=== PATIENT | female | born 2000 | race American Indian/Alaskan Native ===

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

== ENCOUNTER 2020-04-24 16:06 | Inpatient (IN) | payer OTHER, MEDICAID ==
[2020-04-24] MEDS ORDERED: Lactated Ringers 1,000 ML IV ONE (16:23)
[2020-04-24] MEDS ORDERED: Ondansetron 4 MG/2 ML SDV IVPUSH PRN (16:23)
[2020-04-24] MEDS ORDERED: Acetaminophen 325 MG Tab PO PRN (16:23)
[2020-04-24] MEDS ORDERED: Tranexamic Acid 1,000 MG in Sodium Chloride 0.9% 100 ML IV PRN (16:23)
[2020-04-24] MEDS ORDERED: Methylergonovine 0.2 MG/1 ML Amp IM PRN (16:23)
[2020-04-24] MEDS ORDERED: Misoprostol 400 MCG (4 X 100 MCG TAB) RECTAL PRN (16:23)
[2020-04-24] MEDS ORDERED: Lidocaine 1% 30 ML SDV INJECT PRN (16:23)
[2020-04-24] MEDS ORDERED: fentaNYL 100 MCG/2 ML SDV IVPUSH PRN (16:23)
[2020-04-24] MEDS ORDERED: Carboprost Tromethamine 250 MCG/1 ML Amp IM PRN (16:23)
[2020-04-24] MEDS ORDERED: Sodium Chloride 0.9% 10 ML Syringe FLUSH PRN ×2 (16:23→20:05)
[2020-04-24] MEDS ORDERED: Oxytocin/Normal Saline 30 UNIT/500 ML BAG IV SCH (16:30)
[2020-04-24] MEDS: Lactated Ringers 1,000 ML IV SCH ×2 (16:49→19:50)
[2020-04-24] MEDS ORDERED: fentaNYL 100 MCG/2 ML SDV ONE (17:39)
[2020-04-24] MEDS ORDERED: EPINEPHrine 1 MG/1 ML Amp ONE ×2 (17:40)
[2020-04-24] MEDS ORDERED: fentaNYL 100 MCG/2 ML SDV ITHECAL ONE (17:40)
[2020-04-24] MEDS ORDERED: Benzocaine/Menthol 20%-0.5% Spray 56 GM Canister TOP PRN (20:05)
[2020-04-24] MEDS ORDERED: Simethicone 80 MG Tab.Chew PO PRN (20:05)
[2020-04-24] MEDS ORDERED: Zolpidem 5 MG Tab PO PRN (20:05)
[2020-04-24] MEDS ORDERED: Oxytocin 10 Units/1 ML SDV IM PRN (20:05)
[2020-04-24] MEDS ORDERED: Measles, Mumps & Rubella Vaccine 0.5 ML SDV SUBCUT ONE (20:05)
[2020-04-24] MEDS: Ibuprofen 800 MG Tab PO PRN (22:33)
[2020-04-24] MEDS: Docusate Sodium 100 MG Cap PO PRN (22:33)
--- NOTE | 2020-04-25 06:55 | HP ---
PATIENT IDENTIFICATION: Isis Croft is a 19-year-old G1, P0, intrauterine at 39-4/7 weeks confirmed with 12-1/7 week ultrasound, who presents in with contractions. HISTORY OF PRESENT ILLNESS: The patient states contractions started getting stronger around 2:30 p.m. on date of admission, increasing in frequency and intensity to the point that they are coming every 2 minutes, that she is breathing and screaming through them, worsening over time. Nothing seems to make them better. She does notice mild spotting associated with this and questionable leaking when nurse checked her, but none since then. To put this in context, she is GBS negative. She has also been on iron during this as well as vitamins for her anemia. Records were called for, reviewed as below, and supplemented by patient history. OBSTETRICAL HISTORY: Primid. [facility]: ABO blood type O positive, negative antibody. Rubella nonimmune. Syphilis antibody is nonreactive. Negative hepatitis B surface antigen, hep C, HIV, GC, and Chlamydia. Wet prep within normal limits. One- hour GTT was 136 on 02/03/2020 and hemoglobin same day was 9.7 with platelets of 274. Pending is a CBC upon admission. PAST MEDICAL/PAST SURGICAL HISTORY: Remarkable for laparoscopic appendectomy back in 2009 as well as having history of needing albuterol. No recent use of inhaler. FAMILY HISTORY: Hypertension in maternal grandmother. Negative family history of anesthesia problems, bleeding problems, defects, or thyroid disease. SOCIAL HISTORY: The patient denies any alcohol, tobacco, or drug use. She lives in [place] with her father and 7 siblings, outside dogs as pets. REVIEW OF SYSTEMS: Otherwise fully reviewed and felt to be noncontributory. OBJECTIVE: Vital Signs: Initial blood pressure 140/78, heart rate by my central exam was in the 90s, respiratory rate is between 12 and 16. Appearance: Female appears stated age, acting appropriate. Nontoxic appearance. Breathing through contractions, but answers questions appropriately. Head: Atraumatic. EOMs intact. PERRLA. No scleral icterus. No obvious otorhinorrhea. Mucous membranes moist. Neck: No obvious tenderness. Lungs: Clear to auscultation bilaterally. No increased work of breathing. Heart: S1, S2. Regular rate and rhythm. Abdomen: Gravid. Ugo's indeterminate. Nontender, nondistended. Bowel sounds positive. No organomegaly, pulsatile masses, or obvious hernias. No rebound, rigidity, or guarding. : Normal external female genitalia. Normal position and presentation. Vaginal exam by my exam reveals 6 cm, 95% effaced, 0 to -1 station, vertex suspected, bag of water is felt. Extremities: No peripheral edema. Deep tendon reflexes 3/4 bilaterally and symmetric in lower extremities. Mood and affect congruent. Judgment and insight intact. Skin: Without cyanosis, clubbing, or jaundice. Investigations pending is a CBC. Rapid COVID test was negative. heart tones in the 140s range. Variable decelerations seen with some moderate variability. Tocometer reveals contractions every 1-1/2 to 3 minutes apart. ASSESSMENT: 1. Intrauterine at 39-4/7 weeks confirmed with 12-1/7 week ultrasound. 2. Active labor. 3. Group B Streptococcus negative. 4. Rubella nonimmune. 5. Maternal anemia, currently on iron and vitamins. Hemoglobin upon admit is pending. 6. G1, P0. PLAN: The patient was initially evaluated by nurse and found to be 4 cm, and within an hour of this, she was 6 cm. She is requesting something for pain. Nitrox has been started and requesting intrathecal and currently awaiting for labs and HAND CELL TUBER to proceed. We will proceed with this as soon as available. Otherwise, we will continue to follow clinically and closely at this point in time. Watch maternal status. The patient understands and agrees with the above treatment plan. [facility] /[id number]
[2020-04-25] MEDS: Prenatal Multivitamin with Calcium/Folic Acid/Iron Tab PO SCH (09:11)
[2020-04-25] MEDS: Docusate Sodium 100 MG Cap PO PRN (09:11)
[2020-04-25] MEDS: Ibuprofen 800 MG Tab PO PRN ×2 (09:11→18:13)
--- NOTE | 2020-04-25 10:21 | PN ---
DATE: 04/24/2020 SUBJECTIVE: The patient is comfortable status post intrathecal. OBJECTIVE: heart tones in the 140s to 150s range with some accelerations noted. Tocometer reveals contractions every 2 minutes. Vaginal exam reveals her to be complete, +1 to +2 station, vertex suspected. Meconium stained fluid noted and some bloody show. ASSESSMENT AND PLAN: Intrauterine at 39 and 4/7 weeks, confirmed with 12 and 1/7 weeks ultrasound, in an active labor, group B Streptococcus negative, rubella nonimmune, G1, P0 with meconium-stained fluid. Did discuss with the patient and as she is complete and there have been concerns with some decelerations earlier and there is one currently, we will proceed to follow her closely and shorten the second stage of labor if possible and start pushing. [facility] /[id number]
--- NOTE | 2020-04-25 11:21 | PN ---
DATE: 04/25/2020 day #1, status post vacuum-assisted vaginal delivery SUBJECTIVE: The patient is tolerating p.o., is ambulating. Did receive a cath last night for concerns with urinary retention. Did void this morning. We will continue to follow clinically and closely in regard to this. OBJECTIVE: Vital Signs: The patient has been afebrile, heart rate 79, blood pressure 120/54, respiratory rate is 12 to 16 by my evaluation. Lungs: Clear to auscultation bilaterally. Heart: S1 and S2. Regular rate and rhythm. Abdomen: Firm uterus. -1 below umbilicus. Extremities: No peripheral edema. No calf pain. LABORATORY DATA: White cell count 19, hemoglobin 11.5, platelets 213. Predelivery hemoglobin 14.4. ASSESSMENT AND PLAN: day #1, status post vacuum-assisted vaginal delivery secondary to perineal laceration, repaired. We will continue to follow clinically and closely. Possible discharge tomorrow. Discussed with mother. Continue working on and follow closely. The patient understands and agrees with the above treatment plan. We will do a bladder scan today if she has any concerns with her urine output and bladder sensations that she had earlier and catheterize if needed. She did have an intrathecal. [facility] /[id number]
--- NOTE | 2020-04-25 12:42 | DEL ---
DATE: 04/24/2020 PREOPERATIVE DIAGNOSES: 1. Intrauterine at 39-4/7 weeks, confirmed with 12-1/7 week ultrasound. 2. Active labor upon admission. 3. Group B Streptococcus negative. 4. Rubella nonimmune. 5. History of maternal anemia, on iron, resolved with hemoglobin of 14.4 upon admission. 6. G1, P0. 7. Meconium-stained fluid. 8. bradycardia. POSTOPERATIVE DIAGNOSES: 1. Intrauterine at 39-4/7 weeks, confirmed with 12-1/7 week ultrasound - delivered. 2. Active labor upon admission. 3. Group B Streptococcus negative. 4. Rubella nonimmune. 5. History of maternal anemia, on iron, resolved with hemoglobin of 14.4 upon admission. 6. G1, P0. 7. Meconium-stained fluid. 8. bradycardia. 9. Second-degree perineal laceration - repaired. PROCEDURE PERFORMED: Vacuum-assisted vaginal delivery with second degree perineal laceration - repaired. Procedure performed by Tiago Pool MD. ANESTHESIA/ANALGESIA: The patient did receive Nitrox in the first stage of labor and then received an intrathecal late first stage of labor. ESTIMATED BLOOD LOSS: 200 mL. FINDINGS: Male. score of 9 and 9, weight pending. SUMMARY OF EVENTS: The patient is a 19-year-old, G1, P0, intrauterine of 39-4/7 weeks, confirmed with 12-1/7-week ultrasound, admitted in active labor with advancing cervical dilation. She received some Nitrox while waiting for intrathecal, which she subsequently received. She was followed closely thereafter. Upon serial evaluations, she was found to be complete with thick meconium-stained fluid with heart tones dropping with a deceleration-type pattern followed by bradycardia. Subsequently, room was set up in a rapid fashion. Did discuss with the patient proceeding with vacuum-assisted vaginal delivery if possible. Did discuss with her the risks, benefits, alternatives, and complications of this as well as with her elder female partner, who I suspect is her mother, who is with her. Subsequently, under sterile condition, Jordan catheter was placed and yellow juanita colored urine was drained. Jordan catheter was removed, and subsequently the patient pushed with contractions. vertex was then brought down and was seen splitting the labia, and at that time, Kiwi vacuum was called for, applied to the vertex, and with the next contraction with the patient pushing, it was pumped up to the green, and with gentle pulling pressure, further descent was noted. And then with future pushing, vertex was delivered. Vacuum was disengaged. KRISYT presentation was noted. Anterior-posterior shoulder as well as delivered without difficulty thereafter. Mouth and nares suctioned. Cord was doubly clamped and cut, and infant was brought over to team for resuscitation. Approximately 10 mL cord blood was obtained for labs. Placenta then delivered with gentle cord traction, fundal massage within 5 minutes. Perineum, vagina, and perirectal areas were examined and noted to have a second-degree perineal laceration that was repaired in usual fashion using 3-0 Vicryl with good anesthetic result from her intrathecal. Mother and infant are currently stable at the time of dictation. [facility] /[id number]
--- NOTE | 2020-04-25 14:07 | PCM.DEL ---
L & D Note - Delivery Note Episiotomy Type: None Vacuum Extractor Progress Note - Alternative Labor Strategies Considered Alternative Labor Strategies Considered:: Reports: Yes Strategies Considered:: Reports: Contraction Intensity Adequate, Position Changes Used to Facilitate Rotation & Descent, Empty Bladder, Rest Indications Considered:: Reports: Yes Indications:: Reports: Suspicion of Immediate or Potential Compromise Time Out:: Reports: Yes - Patient Prepared Patient Prepared:: Reports: Yes Informed Consent:: Reports: Yes, Verbal Risks: Reports: Yes Risks Include:: Reports: Laceration, Shoulder Dystocia, Maternal Injury, Other Anesthesia/Analgesia Adequate:: Reports: Yes - Probability of Success High Probability of Success:: Reports: Yes Weight Estimated:: Reports: AGA Patient Diabetic:: Reports: No Pelvis Adequate:: Reports: No Position:: vertex seen splitting labia Asynclitic:: Reports: No - Application Time Maximum Application Time & Number of Pop-Offs Predetermined:: Reports: Yes Maximum Pressure Maintained in Green Zone (cm Hg):: 0 (see nurses notes) Total Application Time (min): *max=20min: 0 (see nurses note) Number of Times Cup Disengaged:: 0 Type of Vacuum Used:: Reports: Cup: Soft (kiwi vaccum) Vacuum Extraction: Successful - Exit Strategy Exit strategy available:: Reports: Yes and resuscitation teams readily available:: Reports: Yes - General Info Date of Service: 04/24/20 - Patient Data Vitals - Most Recent: Last Vital Signs Temp 99.0 F 04/25/20 10:30 Pulse 114 H 04/25/20 08:00 Resp 16 04/25/20 08:00 BP 123/57 L 04/25/20 08:00 Pulse Ox 97 04/25/20 08:00 Weight - Most Recent: 74.389 kg I&O - Last 24 Hours: Intake & Output 04/24/20 04/25/20 04/25/20 22:59 06:59 14:59 Output Total 600 Balance -600 Lab Results Last 24 Hours: Laboratory Results - last 24 hr 04/24/20 04/24/20 04/25/20 Range/Units 16:10 17:07 06:19 WBC 16.0 H 19.0 H (5.0-10.0) 10^3/uL RBC 4.83 3.83 L (4.2-5.4) 10^6/uL Hgb 14.4 11.5 L D (12.0-16.0) g/dL Hct 43.4 35.4 L (37.0-47.0) % MCV 89.9 92.4 (80-100) fL MCH 29.8 30.0 (27.0-34.0) pg MCHC 33.2 32.5 L (33.0-35.0) g/dL Plt Count 255 213 (150-450) 10^3/uL COVID-19 (SNEG) Negative (NEGATIVE) Med Orders - Current: Current Medications Acetaminophen (Tylenol) 650 mg PO Q4H PRN PRN Reason: Pain (Mild 1-3) and fever Benzocaine/Menthol (Dermoplast Pain Relief [place]) 0 gm TOP Q4H PRN PRN Reason: Perineal comfort measures Last Admin: 04/24/20 22:34 Dose: 1 spray Documented by: Carboprost Tromethamine (Hemabate Ds) 250 mcg IM ASDIRECTED PRN PRN Reason: HEMORRHAGE Docusate Sodium (Colace) 100 mg PO BID PRN PRN Reason: Constipation Last Admin: 04/25/20 09:11 Dose: 100 mg Documented by: Fentanyl (Sublimaze) 100 mcg IVPUSH Q1H PRN PRN Reason: Pain (moderate 4-6) Tranexamic Acid 1,000 mg/ (Sodium Chloride) 110 mls @ 660 mls/hr IV ONETIME PRN PRN Reason: Bleeding Oxytocin/Sodium Chloride (Pitocin In Ns 30 Unit/500 Ml) 30 unit in 500 mls @ 2 mls/hr IV TITRATE AYAZ; Protocol Last Titration: 04/24/20 22:50 Dose: 0 munits/min, 0 mls/hr Documented by: Lactated Ringer's (Ringers, Lactated) 1,000 mls @ 125 mls/hr IV ASDIRECTED AYAZ Last Infusion: 04/24/20 22:50 Dose: 0 mls/hr Documented by: Ibuprofen (Motrin) 800 mg PO Q8H PRN PRN Reason: Mild Pain or Fever Last Admin: 04/25/20 09:11 Dose: 800 mg Documented by: Lidocaine HCl (Xylocaine-Mpf 1%) 30 ml INJECT ASDIRECTED PRN PRN Reason: Perineal Repair Methylergonovine Maleate (Methergine) 0.2 mg IM ASDIRECTED PRN PRN Reason: Hemorrhage Misoprostol (Cytotec) 800 mcg RECTAL ASDIRECTED PRN PRN Reason: Hemorrhage Ondansetron HCl (Zofran) 4 mg IVPUSH Q4H PRN PRN Reason: Nausea/Vomiting Last Admin: 04/24/20 17:16 Dose: 4 mg Documented by: Oxytocin (Pitocin) 10 unit IM ONETIME PRN PRN Reason: Bleeding Prenat Multivit/[place]/Iron/Folic Ac ( Plus Iron) 1 each PO DAILY AYAZ Last Admin: 04/25/20 09:11 Dose: 1 each Documented by: Simethicone (Simethicone) 80 mg PO Q4H PRN PRN Reason: Gas Sodium Chloride (Saline Flush) 10 ml FLUSH ASDIRECTED PRN PRN Reason: Keep Vein Open Witch Sanjuana (Medi-Pads) 1 each TOP Q4HR PRN PRN Reason: Perineal Comfort Measure Zolpidem Tartrate (Ambien) 5 mg PO BEDTIME PRN PRN Reason: Insomnia Discontinued Medications Epinephrine HCl (Adrenalin) Confirm Administered Dose 1 mg .ROUTE .STK-MED ONE Stop: 04/24/20 17:41 Last Admin: 04/24/20 18:57 Dose: Not Given Documented by: Fentanyl (Sublimaze) Confirm Administered Dose 100 mcg .ROUTE .STK-MED ONE Stop: 04/24/20 17:40 Last Admin: 04/24/20 18:57 Dose: Not Given Documented by: Lactated Ringer's (Ringers, Lactated) 1,000 mls @ 500 mls/hr IV BOLUS ONE Stop: 04/24/20 18:22 Last Admin: 04/24/20 17:40 Dose: 500 mls/hr Documented by: Measles/Mumps/Rubella Vaccine Live (M-M-R Ii Vaccine) 0.5 ml SUBCUT .ONCE ONE Stop: 04/24/20 20:06 Sufentanil Citrate (Sufenta) Confirm Administered Dose 50 mcg .ROUTE .STK-MED ONE Stop: 04/24/20 17:41 Last Admin: 04/24/20 18:58 Dose: Not Given Documented by: - Problem List Review Problem List Initiated/Reviewed/Updated: Yes - My Orders Last 24 Hours: My Active Orders 04/24/20 16:23 Patient Status [ADT] Routine Notify Provider Vital Signs OB [RC] ASDIRECTED Notify Provider [RC] PRN Up ad Corinne [RC] ASDIRECTED Vital Signs [RC] 08,20 Acetaminophen [TylenoL] 650 mg PO Q4H PRN Carboprost Tromethamine [Hemabate DS] 250 mcg IM ASDIRECTED PRN Lidocaine 1% [Xylocaine-MPF 1%] 30 ml INJECT ASDIRECTED PRN Methylergonovine [Methergine] 0.2 mg IM ASDIRECTED PRN Ondansetron [Zofran] 4 mg IVPUSH Q4H PRN Sodium Chloride 0.9% [Saline Flush] 10 ml FLUSH ASDIRECTED PRN Tranexamic Acid [Cyklokapron] 1,000 mg Sodium Chloride 0.9% [Normal Saline] 100 ml IV ONETIME fentaNYL [Sublimaze] 100 mcg IVPUSH Q1H PRN miSOPROStoL [Cytotec] 800 mcg RECTAL ASDIRECTED PRN Saline Lock Insert [OM.PC] Routine Resuscitation Status Routine 04/24/20 16:30 Lactated Ringers [Ringers, Lactated] 1,000 ml IV ASDIRECTED Oxytocin/Normal Saline [Pitocin in NS 30 UNIT/500 ML] 30 unit in 500 ml IV TITRATE 04/24/20 Dinner Clear Liquid Diet [DIET] Regular Diet [DIET] 04/24/20 20:05 Benzocaine/Menthol [Dermoplast Pain Relief [place]] See Dose Instructions TOP Q4H PRN Docusate Sodium [Colace] 100 mg PO BID PRN Ibuprofen [Motrin] 800 mg PO Q8H PRN Oxytocin [Pitocin] 10 unit IM ONETIME PRN Simethicone 80 mg PO Q4H PRN Zolpidem [Ambien] 5 mg PO BEDTIME PRN witch Sanjuana [Medi-Pads] 1 each TOP Q4HR PRN Assess Lochia [WOMSER] Per Unit Routine Assess Uterine Involution [WOMSER] Per Unit Routine Breast Pump [WOMSER] Per Unit Routine Ice Therapy [OM.PC] Per Unit Routine Perineal Care [OM.PC] Per Unit Routine Saline Lock Insert [OM.PC] Urgent Sitz Bath [OM.PC] Per Unit Routine 04/24/20 20:06 Vaccines to be Administered [RC] PER UNIT ROUTINE 04/25/20 Breakfast Regular Diet [DIET] 04/25/20 09:00 Vit with Ca/FA/Iron [ Plus Iron] 1 each PO DAILY
[2020-04-26] MEDS: Ibuprofen 800 MG Tab PO PRN ×2 (05:28→12:49)
[2020-04-26] MEDS: Prenatal Multivitamin with Calcium/Folic Acid/Iron Tab PO SCH (08:53)
[2020-04-26] MEDS: Docusate Sodium 100 MG Cap PO PRN (08:53)
[2020-04-26 09:47] VITALS: BP 114/54; PULSE 93
--- NOTE | 2020-04-26 11:21 | DISCH ---
ADMITTING DIAGNOSES: 1. Intrauterine at 39 and 4/7 weeks, confirmed with 12 and 1/7 weeks ultrasound. 2. Active labor. 3. GBS negative. 4. Rubella nonimmune. 5. History of maternal anemia with hemoglobin of 14.4 on admission. 6. G1, P0. DISCHARGE DIAGNOSES: 1. Intrauterine at 39 and 4/7 weeks, confirmed with 12 and 1/7 weeks ultrasound, delivered. 2. Active labor. 3. GBS negative. 4. Rubella nonimmune. 5. History of maternal anemia with hemoglobin of 14.4 on admission. 6. G1, P0. 7. Meconium-stained fluid. 8. bradycardia. 9. Second-degree perineal laceration, repaired. PROCEDURE PERFORMED: Vacuum-assisted vaginal delivery with second degree perineal laceration repair per Dr. Pool. HISTORY OF PRESENT ILLNESS: Please see H and P. SUMMARY OF HOSPITAL COURSE: The patient was admitted on the above date with above diagnoses, was in active labor. Did receive some Nitrox, then an intrathecal. She was found to be complete and had meconium-stained fluid with bradycardia, underwent a vacuum-assisted vaginal delivery, yielding a male, score 9 and 9, weighing 7 pounds 12 ounces. Please see delivery note for further details. day #1, please see progress note. day #1, date of discharge, the patient is tolerating p.o., was ambulating, urinating, passing flatus, requesting discharge. PHYSICAL EXAMINATION: Vital Signs: Last set of vitals; temperature 98.6, heart rate 103, blood pressure 118/66, respiratory rate 16. Lungs: Clear to auscultation bilaterally. Heart: S1 and S2. Regular rate and rhythm. Firm uterus. -1 below umbilicus. Extremities: No peripheral edema. No calf pain. LABORATORY DATA: Hemoglobin dropped from 14.4 to 11.5, day #1. CONDITION ON DISCHARGE COMPARED TO CONDITION ON ADMISSION: Improved. DISCHARGE INSTRUCTIONS: Diet as tolerated. Activity: No lifting more than 20 pounds. No sit-ups or straining. Pelvic rest for next 6 weeks with immediate return to fertility discussed with the patient. Reasons to return or go to the emergency room were discussed with the patient in detail including, but not limited to temperature greater than 100.4, foul- smelling discharge, red hot tender breasts, or increased vaginal bleeding. DISCHARGE MEDICATIONS: [id number] ibuprofen for pain, iron sulfate 325 daily, and vitamins daily for 6 weeks. FOLLOWUP: 6-week visit. Baby will need to follow up in 2 days. Did discuss with the patient as well as importance of followup and ramifications of not doing so and reasons to return or go to emergency room in regard to her baby. [facility] /[id number] JAYLON
--- NOTE | 2020-05-03 11:49 | PCM.PRNOTE ---
- Free Text/Narrative Note: Requested to provide analgesia to full term patient in severe pain. Upon entering the room, patient is sitting on edge of bed complaining of severe abdominal/pelvic pain and discomfort. Procedure was discussed with patient including adverse outcomes and expectations. Pt consented to analgesia, SAB/IT. Pt placed into a proper sitting position. Landmarks for SAB/IT were identified and marked. Hands were washed and appropriate PPE was applied. Back was prepped with betadine x3. A sterile, transparent, fenestrated drape was applied. Excess betadine was removed. Using 3 mL of a 1% lidocaine solution, a skin wheel was placed at the L2/L3 interspace. A 24 ga (4 inch) Pencan spinal needle was inserted until positive for CSF. Negative for heme or paresthesias. Injected fentanyl 30 mcg, sufentanil 25 mcg, and 7.5 mg of a 0.75% bupivacaine solution with an epi wash. Pt was placed left lateral position for approximately 20 minutes. There were zero complications or adverse outcomes. Will continue to monitor. Procedure Date & Time: 05-03-20 [id number]
== END 2020-04-26 13:20 | disposition home or self-care (01) | DRG 807 ==
LOC: DL.OBCHECK 16:06 → DL.OB 16:19 → UNDOADMOB 16:19 → DL.OB 16:23 → OBSVTOIN 19:53
PROVIDERS: ADMIT Family Medicine; ATTEND Family Medicine
PROC: 10D07Z6 Extraction of Products of Conception, Vacuum, Via Natural or Artificial Opening (ICD-10-PCS; principal; 2020-04-24)
PROC: 0KQM0ZZ Repair Perineum Muscle, Open Approach (ICD-10-PCS; 2020-04-24)
DX: O99.02 Anemia complicating childbirth (principal); Z37.0 Single live birth; D64.9 Anemia, unspecified; Z3A.39 39 weeks gestation of pregnancy; O77.0 Labor and delivery complicated by meconium in amniotic fluid; O76 Abnormality in fetal heart rate and rhythm complicating labor and delivery; O70.1 Second degree perineal laceration during delivery; Z20.828 Contact with and (suspected) exposure to other viral communicable diseases
CPT/HCPCS: 01967; 36415; 51701; 59409; 85027; 90471; 90707; A9270-GY; J0171; J2405; J2590; J3010; J7120; U0002

== ENCOUNTER 2021-05-31 00:57 | Emergency (ER) | payer OTHER, MEDICAID ==
[2021-05-31 02:15] LABS: AMPHETAMINES,URINE NEGATIVE (NEGATIVE); BARBITURATES,URINE NEGATIVE (NEGATIVE); BENZODIAZEPINE,URINE NEGATIVE (NEGATIVE); MDMA (ECSTASY), URINE NEGATIVE (NEGATIVE); METHADONE,URINE NEGATIVE (NEGATIVE); METHAMPHETAMINES,URINE NEGATIVE (NEGATIVE); OPIATES,URINE NEGATIVE (NEGATIVE); OXYCODONE,URINE NEGATIVE (NEGATIVE); PHENCYCLIDINE,URINE NEGATIVE (NEGATIVE); TCA,URINE NEGATIVE (NEGATIVE)
--- NOTE | 2021-05-31 02:24 | EDM.PDOC ---
ED HPI GENERAL MEDICAL PROBLEM - General Chief Complaint: SITE MEDICAL DIRECTOR Problem Stated Complaint: 8 WKS , BLOOD SPOT WHEN "PEE" Time Seen by Provider: 05/31/21 01:15 Source of Information: Reports: Patient History Limitations: Reports: No Limitations - History of Present Illness INITIAL COMMENTS - FREE TEXT/NARRATIVE: LMP 04/02 reports 8 weeks with bleeding intermittent spotting past 2 days. some cramping, some RLQ pain. . quarter size spot bright red blood on pad 2 hours prior after intercourse. No complications with prior . No OB visit or US to date. - Related Data Allergies Allergy/AdvReac Type Severity Reaction Status Date / Time No Known Allergies Allergy Verified 05/31/21 01:17 Home Meds: Home Meds Ferrous Sulfate 325 mg PO DAILY 04/24/20 [History] Vit with Ca/FA/Iron [ Plus Iron] 1 tab PO DAILY 04/24/20 [History] Past Medical History - Past Health History Medical/Surgical History: Denies Medical/Surgical History Respiratory History: Reports: Asthma, Other (See Below) Other Respiratory History: history SITE MEDICAL DIRECTOR History: Reports: Other SITE MEDICAL DIRECTOR History: - LMP 04-02-2021 Musculoskeletal History: Reports: Other (See Below) Other Musculoskeletal History: right hip dislocation 2016 Hematologic History: Reports: Anemia - Past Surgical History GI Surgical History: Reports: Appendectomy Social & Family History - Family History Family Medical History: No Pertinent Family History - Caffeine Use Caffeine Use: Reports: Soda ED ROS GENERAL - Review of Systems Review Of Systems: Comprehensive ROS is negative, except as noted in HPI. ED EXAM, GI/ABD - Physical Exam Exam: See Below Exam Limited By: No Limitations General Appearance: Alert, No Apparent Distress, Anxious Ears: Normal External Exam Nose: Normal Inspection Throat/Mouth: Normal Inspection Head: Atraumatic, Normocephalic Neck: Normal Inspection Respiratory/Chest: No Respiratory Distress, Lungs Clear Cardiovascular: Normal Peripheral Pulses GI/Abdominal Exam: Normal Bowel Sounds, Soft, Tender (Right lower) (Female) Exam: Adnexal Tenderness Extremities: Normal Inspection Neurological: Alert, Oriented Course - Vital Signs Last Recorded V/S: Last Vital Signs Temp 98.4 F 05/31/21 03:30 Pulse 72 05/31/21 03:30 Resp 16 05/31/21 03:30 BP 109/64 05/31/21 03:30 Pulse Ox 99 05/31/21 03:30 - Orders/Labs/Meds Labs: Laboratory Tests 05/31/21 05/31/21 05/31/21 Range/Units 01:17 01:17 01:55 WBC 7.6 (5.0-10.0) 10^3/uL RBC 4.01 L (4.2-5.4) 10^6/uL Hgb 11.3 L (12.0-16.0) g/dL Hct 35.6 L (37.0-47.0) % MCV 88.8 D (80-100) fL MCH 28.2 (27.0-34.0) pg MCHC 31.7 L (33.0-35.0) g/dL Plt Count 263 (150-450) 10^3/uL Neut % (Auto) 71.2 (42.2-75.2) % Lymph % (Auto) 20.9 (20.5-50.1) % [place] % (Auto) 6.4 (2-8) % Eos % (Auto) 1.2 (1.0-3.0) % Baso % (Auto) 0.3 (0.0-1.0) % Sodium (136-145) mmol/L Potassium (3.5-5.1) mmol/L Chloride (98-107) mmol/L Carbon Dioxide (21-32) mmol/L Anion Gap (7-13) mEq/L BUN (7-18) mg/dL Creatinine (0.55-1.02) mg/dL Est Cr Clr Drug Dosing mL/min Estimated GFR (MDRD) BUN/Creatinine Ratio (No establ ref range) Glucose (70-99) mg/dL Calcium (8.5-10.1) mg/dL Total Bilirubin (0.2-1.0) mg/dL AST (15-37) U/L ALT (14-59) U/L Alkaline Phosphatase (46-116) U/L Total Protein (6.4-8.2) g/dL Albumin (3.4-5.0) g/dL Globulin Albumin/Globulin Ratio HCG, Quant (0-6) mIU/mL Urine Color Yellow (YELLOW) Urine Appearance Slightly cloudy (CLEAR) Urine pH 5.5 (5.0-9.0) Ur Specific [place] >= 1.030 (1.005-1.030) Urine Protein Negative (NEGATIVE) Urine Glucose (UA) Negative (NEGATIVE) Urine Ketones Negative (NEGATIVE) Urine Occult Blood Large H (NEGATIVE) Urine Nitrite Negative (NEGATIVE) Urine Bilirubin Negative (NEGATIVE) Urine Urobilinogen 0.2 (0.2-1.0) mg/dL Ur Leukocyte Esterase Negative (NEGATIVE) Urine RBC >100 H (0-5) /HPF Urine WBC 0-5 (0-5/HPF) /HPF Ur Epithelial Cells Few (NOT SEEN) /HPF Urine Bacteria Rare (0-FEW/HPF) /HPF Urine Mucus Rare (NOT SEEN) /LPF Urine Opiates Screen Negative (NEGATIVE) Ur Oxycodone Screen Negative (NEGATIVE) Urine Methadone Screen Negative (NEGATIVE) Ur Barbiturates Screen Negative (NEGATIVE) U Tricyclic Antidepress Negative (NEGATIVE) Ur Phencyclidine Scrn Negative (NEGATIVE) Ur Amphetamine Screen Negative (NEGATIVE) U Methamphetamines Scrn Negative (NEGATIVE) Urine MDMA Screen Negative (NEGATIVE) U Benzodiazepines Scrn Negative (NEGATIVE) Urine Cocaine Screen Negative (NEGATIVE) U Marijuana (THC) Screen Negative (NEGATIVE) 05/31/21 05/31/21 Range/Units 01:55 01:55 WBC (5.0-10.0) 10^3/uL RBC (4.2-5.4) 10^6/uL Hgb (12.0-16.0) g/dL Hct (37.0-47.0) % MCV (80-100) fL MCH (27.0-34.0) pg MCHC (33.0-35.0) g/dL Plt Count (150-450) 10^3/uL Neut % (Auto) (42.2-75.2) % Lymph % (Auto) (20.5-50.1) % [place] % (Auto) (2-8) % Eos % (Auto) (1.0-3.0) % Baso % (Auto) (0.0-1.0) % Sodium 141 (136-145) mmol/L Potassium 4.0 (3.5-5.1) mmol/L Chloride 105 (98-107) mmol/L Carbon Dioxide 24 (21-32) mmol/L Anion Gap 16.0 H (7-13) mEq/L BUN 8 (7-18) mg/dL Creatinine 0.69 (0.55-1.02) mg/dL Est Cr Clr Drug Dosing 139.47 mL/min Estimated GFR (MDRD) > 60 BUN/Creatinine Ratio 11.6 (No establ ref range) Glucose 97 (70-99) mg/dL Calcium 8.5 (8.5-10.1) mg/dL Total Bilirubin 0.3 (0.2-1.0) mg/dL AST 11 L (15-37) U/L ALT 22 (14-59) U/L Alkaline Phosphatase 75 (46-116) U/L Total Protein 6.9 (6.4-8.2) g/dL Albumin 3.7 (3.4-5.0) g/dL Globulin 3.2 Albumin/Globulin Ratio 1.2 HCG, Quant 41432 H (0-6) mIU/mL Urine Color (YELLOW) Urine Appearance (CLEAR) Urine pH (5.0-9.0) Ur Specific [place] (1.005-1.030) Urine Protein (NEGATIVE) Urine Glucose (UA) (NEGATIVE) Urine Ketones (NEGATIVE) Urine Occult Blood (NEGATIVE) Urine Nitrite (NEGATIVE) Urine Bilirubin (NEGATIVE) Urine Urobilinogen (0.2-1.0) mg/dL Ur Leukocyte Esterase (NEGATIVE) Urine RBC (0-5) /HPF Urine WBC (0-5/HPF) /HPF Ur Epithelial Cells (NOT SEEN) /HPF Urine Bacteria (0-FEW/HPF) /HPF Urine Mucus (NOT SEEN) /LPF Urine Opiates Screen (NEGATIVE) Ur Oxycodone Screen (NEGATIVE) Urine Methadone Screen (NEGATIVE) Ur Barbiturates Screen (NEGATIVE) U Tricyclic Antidepress (NEGATIVE) Ur Phencyclidine Scrn (NEGATIVE) Ur Amphetamine Screen (NEGATIVE) U Methamphetamines Scrn (NEGATIVE) Urine MDMA Screen (NEGATIVE) U Benzodiazepines Scrn (NEGATIVE) Urine Cocaine Screen (NEGATIVE) U Marijuana (THC) Screen (NEGATIVE) Departure - Departure Time of Disposition: 03:18 Disposition: Home, Self-Care 01 Condition: Good Clinical Impression: First trimester , Vaginal bleeding during - Discharge Information *PRESCRIPTION DRUG MONITORING PROGRAM REVIEWED*: No *COPY OF PRESCRIPTION DRUG MONITORING REPORT IN PATIENT DEANA: No Instructions: First Trimester of , [id number] Forms: ED Department Discharge Additional Instructions: Increase fluids rest light activity avoid intercourse follow up with OB Sepsis Event Note (ED) - Evaluation Sepsis Screening Result: No Definite Risk
[2021-05-31 02:38] LABS: CHLORIDE,CL 105 mmol/L (98-107); SODIUM,NA 141 mmol/L (136-145)
[2021-05-31 03:34] VITALS: BP 109/64; PULSE 72
--- NOTE | 2021-05-31 04:40 | US ---
PROCEDURE INFORMATION: Exam: US , Limited Exam date and time: 05/31/2021 2:53 AM Age: 20 years old Clinical indication: complicated by abdominal or pelvic pain; Right lower quadrant; First trimester (<14 weeks 0 days); Gestational age or lmp: 04/04/2021; ; Additional info: 8 weeks pg, spotting rlq pain R/O ectopic TECHNIQUE: Imaging protocol: Real-time ultrasound of the maternal uterus with image documentation. Exam focused on the clinical indication. COMPARISON: No relevant prior studies available. FINDINGS: Gestation: A single intrauterine gestation is present with a crown-rump length of 4.3 mm which is equivalent of 6 weeks 1 day gestation with an estimated date of delivery of 01/23/22. cardiac activity was recorded at 120 bpm. Placenta: No subchorionic hemorrhage is identified. IMPRESSION: Single living intrauterine gestation of approximately 6 weeks 1 day. No cause of spotting is identified. 2. Consider follow-up as clinically indicated.
== END 2021-05-31 03:25 | disposition home or self-care (01) ==
LOC: DL.ED 00:57
DX: O20.9 Hemorrhage in early pregnancy, unspecified (principal); Z3A.08 8 weeks gestation of pregnancy
CPT/HCPCS: 36415; 76815; 80053; 80305-QW; 81001; 84702; 85025; 99284-25

== ENCOUNTER 2022-01-16 11:19 | Inpatient (IN) | payer OTHER, MEDICAID ==
[2022-01-16] MEDS ORDERED: Penicillin G Potassium 5 MILLUNITS in Sodium Chloride 0.9% 100 ML IV ONE (11:34)
[2022-01-16] MEDS ORDERED: Methylergonovine 0.2 MG/1 ML Amp IM PRN (11:39)
[2022-01-16] MEDS ORDERED: Misoprostol 400 MCG (4 X 100 MCG TAB) RECTAL PRN (11:39)
[2022-01-16] MEDS ORDERED: Lactated Ringers 1,000 ML IV ONE (11:39)
[2022-01-16] MEDS ORDERED: Tranexamic Acid 1,000 MG in Sodium Chloride 0.9% 100 ML IV PRN (11:39)
[2022-01-16] MEDS ORDERED: Lidocaine 1% 30 ML SDV INJECT PRN (11:39)
[2022-01-16] MEDS ORDERED: Acetaminophen 325 MG Tab PO PRN (11:39)
[2022-01-16] MEDS ORDERED: Ondansetron 4 MG/2 ML SDV IVPUSH PRN (11:39)
[2022-01-16] MEDS ORDERED: Carboprost Tromethamine 250 MCG/1 ML Amp IM PRN (11:39)
[2022-01-16] MEDS ORDERED: Sodium Chloride 0.9% 10 ML Syringe FLUSH PRN (11:39)
[2022-01-16] MEDS ORDERED: Morphine PF 1 MG/ML Amp ITHECAL ONE (11:42)
[2022-01-16] MEDS ORDERED: Oxytocin/Normal Saline 30 UNIT/500 ML BAG IV SCH (11:45)
[2022-01-16] MEDS ORDERED: Lactated Ringers 1,000 ML IV SCH (11:45)
[2022-01-16] MEDS ORDERED: Penicillin G Potassium 3 MILLUNITS in Sodium Chloride 0.9% 100 ML IV SCH (16:00)
[2022-01-16] MEDS ORDERED: Benzocaine/Menthol 20%-0.5% Spray 78 GM Cannister TOP PRN (17:15)
[2022-01-16] MEDS ORDERED: Simethicone 80 MG Tab.Chew PO PRN (17:15)
[2022-01-16] MEDS ORDERED: Oxytocin 10 Units/1 ML SDV IM PRN (17:15)
[2022-01-16] MEDS ORDERED: Zolpidem 5 MG Tab PO PRN (17:15)
[2022-01-17] MEDS: Prenatal Multivitamin with Calcium/Folic Acid/Iron Tab PO SCH (08:37)
[2022-01-17] MEDS: Docusate Sodium 100 MG Cap PO PRN ×2 (08:37→20:36)
[2022-01-17] MEDS: Ibuprofen 800 MG Tab PO PRN ×2 (08:38→20:36)
[2022-01-18 07:58] VITALS: BP 120/74; PULSE 71
[2022-01-18] MEDS: Ibuprofen 800 MG Tab PO PRN (08:45)
[2022-01-18] MEDS: Prenatal Multivitamin with Calcium/Folic Acid/Iron Tab PO SCH (08:45)
[2022-01-18] MEDS: Docusate Sodium 100 MG Cap PO PRN (08:45)
[2022-01-18] MEDS ORDERED: Measles, Mumps & Rubella Vaccine 0.5 ML SDV SUBCUT ONE (10:00)
== END 2022-01-18 11:40 | disposition home or self-care (01) | DRG 807 ==
LOC: DL.OBCHECK 11:19 → DL.OB 11:41 → OBSVTOIN 16:37
PROVIDERS: ADMIT Family Medicine; ATTEND Family Medicine
PROC: 10E0XZZ Delivery of Products of Conception, External Approach (ICD-10-PCS; principal; 2022-01-16)
PROC: 0HQ9XZZ Repair Perineum Skin, External Approach (ICD-10-PCS; 2022-01-16)
PROC: 4A1HXCZ Monitoring of Products of Conception, Cardiac Rate, External Approach (ICD-10-PCS; 2022-01-16)
PROC: 10907ZC Drainage of Amniotic Fluid, Therapeutic from Products of Conception, Via Natural or Artificial Opening (ICD-10-PCS; 2022-01-16)
PROC: 00HU33Z Insertion of Infusion Device into Spinal Canal, Percutaneous Approach (ICD-10-PCS; 2022-01-16)
PROC: 3E0R3BZ Introduction of Anesthetic Agent into Spinal Canal, Percutaneous Approach (ICD-10-PCS; 2022-01-16)
DX: O99.824 Streptococcus B carrier state complicating childbirth (principal); Z37.0 Single live birth; Z3A.39 39 weeks gestation of pregnancy; O70.0 First degree perineal laceration during delivery; Z20.822 Contact with and (suspected) exposure to COVID-19
CPT/HCPCS: 36415; 59409; 85027; 90471; 90707; A9270-GY; J2274; J2540; J2590; J7120; U0002

== ENCOUNTER 2023-04-05 00:46 | Emergency (ER) | payer MEDICAID, OTHER ==
[2023-04-05] MEDS ORDERED: Propofol 200 MG/20 ML SDV IV ONE (00:47)
[2023-04-05] MEDS ORDERED: Lidocaine 1% 5 ML VIAL IV ONE (00:47)
[2023-04-05] MEDS ORDERED: Sodium Chloride 0.9% 10 ML Syringe IV ONE (00:47)
[2023-04-05] MEDS ORDERED: Acetaminophen 500 MG Tab PO ONE (01:05)
[2023-04-05] MEDS ORDERED: Ketorolac 30 MG/ML SDV IM ONE (01:05)
[2023-04-05 02:56] VITALS: BP 105/78; PULSE 91
== END 2023-04-05 03:03 | disposition home or self-care (01) ==
LOC: DL.ED 00:46
DX: S52.502A Unspecified fracture of the lower end of left radius, initial encounter for closed fracture (principal); S52.611A Displaced fracture of right ulna styloid process, initial encounter for closed fracture; J45.909 Unspecified asthma, uncomplicated; W01.0XXA Fall on same level from slipping, tripping and stumbling without subsequent striking against object, initial encounter
CPT/HCPCS: 01820; 25605; 73100; 73110; 96372; 99282; 99284; A9270; J1885; J2704; J3490

== ENCOUNTER 2023-09-25 12:36 | Emergency (ER) | payer MEDICAID | END 2023-09-25 15:50 | disposition left against medical advice (07) | LOC: DL.ED 12:36 | DX: Z53.21 Procedure and treatment not carried out due to patient leaving prior to being seen by health care provider (principal) ==

== ENCOUNTER 2024-04-28 11:59 | Inpatient (IN) | payer MEDICAID ==
[2024-04-28] MEDS ORDERED: Carboprost Tromethamine 250 MCG/1 ML Amp IM PRN (12:19)
[2024-04-28] MEDS ORDERED: Sodium Chloride 0.9% 10 ML Syringe FLUSH PRN ×2 (12:19→20:55)
[2024-04-28] MEDS ORDERED: Misoprostol 400 MCG (4 X 100 MCG TAB) RECTAL PRN (12:19)
[2024-04-28] MEDS ORDERED: Methylergonovine 0.2 MG/1 ML Amp IM PRN (12:19)
[2024-04-28] MEDS ORDERED: Tranexamic Acid 1,000 MG in Sodium Chloride 0.9% 100 ML IV PRN (12:19)
[2024-04-28] MEDS ORDERED: Oxytocin/Normal Saline 30 UNIT/500 ML BAG IV SCH (12:30)
[2024-04-28] MEDS: Misoprostol 50 MCG (1/2 of 100 MCG) Tab VAG SCH (13:05)
[2024-04-28] MEDS: Lactated Ringers 1,000 ML IV ONE (15:07)
[2024-04-28] MEDS: Ondansetron 4 MG/2 ML SDV IVPUSH PRN (16:59)
[2024-04-28] MEDS: Lactated Ringers 1,000 ML IV SCH (17:02)
[2024-04-28] MEDS ORDERED: ePHEDrine 50 MG/ML SDV IVPUSH PRN (17:40)
[2024-04-28] MEDS ORDERED: Phenylephrine HCl In 0.9% NaCl 1 MG/10 ML Syringe IVPUSH PRN (17:40)
[2024-04-28] MEDS ORDERED: Ropivacaine 200 MG in Premix Bag 1 BAG EPIDUR SCH (17:45)
[2024-04-28] MEDS ORDERED: fentaNYL 100 MCG/2 ML SDV ONE (18:19)
[2024-04-28] MEDS: Oxytocin/Normal Saline 30 UNIT/500 ML BAG IV SCH (20:48)
[2024-04-28] MEDS ORDERED: Simethicone 80 MG Tab.Chew PO PRN (20:55)
[2024-04-28] MEDS ORDERED: Oxytocin 10 Units/1 ML SDV IM PRN (20:55)
[2024-04-28] MEDS ORDERED: Witch Hazel Medicated Pads 100/Jar TOP PRN (20:55)
[2024-04-28] MEDS: Benzocaine/Menthol 20%-0.5% Spray 78 GM Cannister TOP PRN (21:30)
[2024-04-28] MEDS: Ibuprofen 800 MG Tab PO SCH (21:30)
[2024-04-29] MEDS: Lidocaine 1% 30 ML SDV INJECT ONE (00:53)
[2024-04-29 06:31] LABS: HEMATOCRIT 38.6 % (37.0-47.0); MEAN CORPUSCULAR HGB CONC 31.1 g/dL (33.0-35.0); MEAN CORPUSCULAR VOLUME 86.7 fL (80-100); RED BLOOD CELL COUNT 4.45 10^6/uL (4.2-5.4); WHITE BLOOD CELL COUNT,WBC 11.4 10^3/uL (5.0-10.0)
[2024-04-29] MEDS: Prenatal Multivitamin with Calcium/Folic Acid/Iron Tab PO SCH (10:32)
[2024-04-29] MEDS: Measles, Mumps & Rubella Vaccine 0.5 ML SDV SUBCUT ONE (10:32)
[2024-04-29] MEDS: Docusate Sodium 100 MG Cap PO PRN (10:32)
[2024-04-29] MEDS: Acetaminophen 325 MG Tab PO PRN (17:08)
[2024-04-30 12:55] VITALS: BP 118/72; PULSE 108
[2024-04-30] MEDS ORDERED: fentaNYL 100 MCG/2 ML SDV EPIDUR ONE (18:19)
== END 2024-04-30 13:00 | disposition home or self-care (01) | DRG 807 ==
LOC: DL.OBCHECK 11:59 → DL.OB 12:19 → OBSVTOIN 20:44
PROVIDERS: ADMIT Family Medicine; ATTEND Family Medicine
PROC: 10E0XZZ Delivery of Products of Conception, External Approach (ICD-10-PCS; principal; 2024-04-28)
PROC: 3E0R3BZ Introduction of Anesthetic Agent into Spinal Canal, Percutaneous Approach (ICD-10-PCS; 2024-04-28)
PROC: 00HU33Z Insertion of Infusion Device into Spinal Canal, Percutaneous Approach (ICD-10-PCS; 2024-04-28)
DX: O26.643 Intrahepatic cholestasis of pregnancy, third trimester (principal); Z37.0 Single live birth; E78.79 Other disorders of bile acid and cholesterol metabolism; K76.89 Other specified diseases of liver; Z3A.38 38 weeks gestation of pregnancy; O70.0 First degree perineal laceration during delivery; O99.814 Abnormal glucose complicating childbirth
CPT/HCPCS: 36415; 51702; 59409; 85027; 90471; 90707; A9270-GY; J2405; J2590; J3010; J7120